=== PATIENT | female | born 1985 | race Two or more races ===

== ENCOUNTER 2019-08-24 06:39 | Inpatient (IN) | payer OTHER ==
[~2019-08-24] VITALS: Ht 157.5 cm; Wt 72.6 kg
[2019-08-24] MEDS ORDERED: PRENATAL TABLE1 EAC1 PO (08:17)
== END 2019-08-26 12:04 | disposition home or self-care (01) | DRG 807 ==
LOC: OB/GYN 06:39 → LDR 06:39 → OB/GYN 16:00
PROVIDERS: ADMIT Obstetrics & Gynecology
PROC: 10E0XZZ Delivery of Products of Conception, External Approach (ICD-10-PCS; principal; 2019-08-24)
PROC: 4A1HXFZ Monitoring of Products of Conception, Cardiac Rhythm, External Approach (ICD-10-PCS; 2019-08-24)
DX: O70.1 Second degree perineal laceration during delivery (principal); Z3A.39 39 weeks gestation of pregnancy; Z37.0 Single live birth